=== PATIENT | female | born 1975 | race Hispanic/Latino ===

== ENCOUNTER 2017-12-24 01:11 | Emergency (ER) | payer SELFPAY ==
[2017-12-24 01:31] VITALS: TEMP 98.4
--- NOTE | 2017-12-24 02:19 | ED PDOC ---
Arrival/HPI <Rashi Amador - Last Filed: 12/24/17 04:37> - General Historian: Patient - History of Present Illness Narrative History of Present Illness (Text): 12/24/17 02:13 42 yo F with PMHx of nephrolithiasis, pyelonephritis, UTI, PE, anxiety presenting to ED with acute onset L flank pain x 2 hours. Patient describes pain as cramping, initially constant but now intermittent, localized primarily to the L flank with radiation to the groin, rated 9/10 in severity. She endorses associated nausea but no vomiting, dysuria since last night, hematuria last night but not today. Denies fevers/chills, headaches, dizziness, changes in vision, chest pain, palpitations, sob, cough, abdominal pain. PMHx: nephrolithiasis, pyelonephritis, UTI, PE, anxiety PSHx: appendectomy, cholecystectomy, hysterectomy Allergies: CTX, All NSAIDs, PCN Home Medications: as per chart Social Hx: denies tobacco, alcohol, illicit drug use FHx: unknown Time/Duration: 1-3 hours Symptom Onset: Sudden Symptom Course: Unchanged Quality: Cramping Severity Level: 9 Activities at Onset: Light <Michael Montana - Last Filed: 12/24/17 05:34> - General Chief Complaint: GI Problem Time Seen by Provider: 12/24/17 01:18 Past Medical History - Provider Review Nursing Documentation Reviewed: Yes - Pulmonary Hx Pulmonary Embolism: Yes - Psychiatric Hx Anxiety: Yes Hx Depression: Yes Hx Substance Use: No - Surgical History Hx Appendectomy: Yes (2014) Hx Cholecystectomy: Yes (2014) Hx Hysterectomy: Yes (2013) <Michael Montana - Last Filed: 12/24/17 05:34> Family/Social History - Physician Review Nursing Documentation Reviewed: Yes Family/Social History: Unknown Family HX Smoking Status: Never Smoked Hx Alcohol Use: No Hx Substance Use: No <Michael Montana - Last Filed: 12/24/17 05:34> Allergies/Home Meds <Rashi Amador - Last Filed: 12/24/17 04:37> <Michael Montana - Last Filed: 12/24/17 05:34> Allergies/Adverse Reactions: Allergies ceftriaxone [From Rocephin] Allergy (Verified 12/24/17 01:27) ANAPHYLAXIS NSAIDS (Non-Steroidal Anti-Inflamma Allergy (Verified 12/24/17 01:27) RASH Penicillins Allergy (Verified 12/24/17 01:27) ANAPHYLAXIS Sulfa (Sulfonamide Antibiotics) Allergy (Verified 12/24/17 01:27) ANAPHYLAXIS Home Medications: Home Meds Medication Instructions Recorded Confirmed Venlafaxine [Effexor 50 MG] 150 mg PO DAILY 12/24/17 12/24/17 Review of Systems - Review of Systems Constitutional: Normal. absent: Fevers Eyes: Normal ENT: Normal Respiratory: Normal. absent: SOB, Cough, Wheezing Cardiovascular: Normal. absent: Chest Pain, Palpitations, Edema, Calf Pain Gastrointestinal: Normal, Constipation, Nausea. absent: Abdominal Pain, Diarrhea, Vomiting, Food Intolerance Genitourinary Female: Dysuria, Hematuria. absent: Frequency Musculoskeletal: Back Pain (L flank pain) Skin: Normal Neurological: Normal. absent: Headache, Dizziness Endocrine: Normal Hemo/Lymphatic: Normal Psychiatric: Anxiety <Michael Montana - Last Filed: 12/24/17 05:34> Physical Exam Vital Signs Temp Pulse Resp BP Pulse Ox 12/24/17 01:28 98.4 F 84 18 146/95 H 96 <Rashi Amador - Last Filed: 12/24/17 04:37> Vital Signs Temp Pulse Resp BP Pulse Ox 12/24/17 01:28 98.4 F 84 18 146/95 H 96 Temperature: Afebrile Blood Pressure: Hypertensive Pulse: Regular Respiratory Rate: Normal Appearance: Positive for: Well-Appearing, Non-Toxic Pain Distress: Moderate Mental Status: Positive for: Alert and Oriented X 3 - Systems Exam Head: Present: Atraumatic, Normocephalic Pupils: Present: PERRL Extroacular Muscles: Present: EOMI Conjunctiva: Present: Normal Neck: Present: Normal Range of Motion Respiratory/Chest: Present: Clear to Auscultation, Good Air Exchange. No: Respiratory Distress, Accessory Muscle Use, Wheezes, Rales, Rhonchi Cardiovascular: Present: Regular Rate and Rhythm, Normal S1, S2 Abdomen: Present: Normal Bowel Sounds. No: Tenderness, Distention, Peritoneal Signs, Rebound, Guarding, Mass/Organomegaly Back: Present: Normal Inspection, CVA Tenderness (+ L side) Upper Extremity: Present: Normal Inspection, Normal ROM, NORMAL PULSES, Capillary Refill < 2s. No: Cyanosis, Edema, Tenderness, Swelling, Erythema Lower Extremity: Present: Normal Inspection, NORMAL PULSES, Normal ROM, Capillary Refill < 2 s. No: Edema, CALF TENDERNESS, Cyanosis, Tenderness, Swelling Neurological: Present: GCS=15, Speech Normal Skin: Present: Warm, Dry, Normal Color. No: Rashes Psychiatric: Present: Alert, Oriented x 3, Normal Insight, Normal Concentration <Michael Montana - Last Filed: 12/24/17 05:34> Medical Decision Making - Lab Interpretations Lab Results: 12/24/17 02:02 12/24/17 02:02 Lab Results 12/24/17 02:05: Urine Color Yellow, Urine Appearance Clear, Urine pH 6.0, Ur Specific [place] >= 1.030, Urine Protein Trace H, Urine Glucose (UA) Negative, Urine Ketones 15 H, Urine Blood Negative, Urine Nitrate Negative, Urine Bilirubin Negative, Urine Urobilinogen 0.2, Ur Leukocyte Esterase Trace H, Urine RBC 0 - 2, Urine WBC 1 - 3, Ur Epithelial Cells 1 - 3, Calcium Oxalate Crystal Occ, Urine Bacteria Small 12/24/17 02:02: Sodium 141, Potassium 3.7, Chloride 103, Carbon Dioxide 28, Anion Gap 14, BUN 10, Creatinine 0.9, Est GFR ( Amer) > 60, Est GFR (Non- Af Amer) > 60, Random Glucose 101, Calcium 9.8, Phosphorus 5.2 H, Magnesium 2.1, Total Bilirubin 0.1 L, AST 26, ALT 24, Alkaline Phosphatase 70, Total Protein 7.5, Albumin 4.3, Globulin 3.2, Albumin/Globulin Ratio 1.3 12/24/17 02:02: WBC 4.9, RBC 4.17, Hgb 11.7 L, Hct 36.8, MCV 88.2, MCH 28.1, MCHC 31.8, RDW 14.1, Plt Count 318, MPV 9.6, Gran % 62.8, Lymph % (Auto) 25.8, [place] % (Auto) 9.8 H, Eos % (Auto) 1.4 L, Baso % (Auto) 0.2, Gran # 3.07, Lymph # (Auto) 1.3, [place] # (Auto) 0.5, Eos # (Auto) 0.1, Baso # (Auto) 0.01 - RAD Interpretation Radiology Orders: 12/24/17 01:49 ABD & PELVIS W/O PO OR IV CONT [CT] Stat - Medication Orders Current Medication Orders: Discontinued Medications Acetaminophen (Tylenol 325mg Tab) 975 mg PO STAT STA Stop: 12/24/17 01:50 Last Admin: 12/24/17 02:12 Dose: 975 mg Morphine Sulfate (Morphine) 4 mg IVP STAT STA Stop: 12/24/17 02:40 Last Admin: 12/24/17 02:47 Dose: 4 mg MAR Pain Assessment Document 12/24/17 02:47 CNR (Rec: 12/24/17 02:48 CNR [id number]) Pain Reassessment Is this a pain reassessment? No IVP Administration Document 12/24/17 02:47 CNR (Rec: 12/24/17 02:48 CNR [id number]) Charges for Administration # of IVP Administrations 1 Ondansetron HCl (Zofran Inj) 4 mg IVP STAT STA Stop: 12/24/17 01:50 Last Admin: 12/24/17 02:12 Dose: 4 mg IVP Administration Document 12/24/17 02:12 CNR (Rec: 12/24/17 02:12 CNR [id number]) Charges for Administration # of IVP Administrations 1 Tamsulosin HCl (Flomax) 0.4 mg PO STAT STA Stop: 12/24/17 01:50 Last Admin: 12/24/17 02:12 Dose: 0.4 mg <Rashi Amador - Last Filed: 12/24/17 04:37> ED Course and Treatment: 12/24/17 02:23 Impression: 42 yo F with pmhx of nephrolithiasis, pyelonephritis, UTI, PE, anxiety presenting to ED with acute onset L flank pain x 2 hours Plan: --CBC, CMP --UA --zofran --tylenol --ct abdomen/pelvis --reassess and disposition 12/24/17 02:43 Patient's pain did not subside with tylenol, requesting morphine as it helped last time she was seen in ED Given extensive medicine allergy, to give morphine x1 12/24/17 04:41 Patient endorses moderate relief of pain s/p morphine Updated pt on CT findings of nonobstructing L renal stones pt is afebrile, no leukocytosis, in no acute distress Medically stable for discharge with outpatient follow-up Instructed to return to ED if symptoms worsen. - Lab Interpretations I have reviewed the lab results: Yes - RAD Interpretation Narrative RAD Interpretations (Text): 12/24/17 03:43 Moderate L renal atrophy Nonobstructing L renal stones Prior cholecystectomy Radiology Orders: 12/24/17 01:49 ABD & PELVIS W/O PO OR IV CONT [CT] Stat Yard Engineer: Radiologist - Medication Orders Current Medication Orders: Discontinued Medications Acetaminophen (Tylenol 325mg Tab) 975 mg PO STAT STA Stop: 12/24/17 01:50 Last Admin: 12/24/17 02:12 Dose: 975 mg Ondansetron HCl (Zofran Inj) 4 mg IVP STAT STA Stop: 12/24/17 01:50 Last Admin: 12/24/17 02:12 Dose: 4 mg IVP Administration Document 12/24/17 02:12 CNR (Rec: 12/24/17 02:12 CNR [id number]) Charges for Administration # of IVP Administrations 1 Tamsulosin HCl (Flomax) 0.4 mg PO STAT STA Stop: 12/24/17 01:50 Last Admin: 12/24/17 02:12 Dose: 0.4 mg <Michael Montana - Last Filed: 12/24/17 05:34> Disposition/Present on Arrival <Rashi Amador - Last Filed: 12/24/17 04:37> - Present on Arrival Any Indicators Present on Arrival: Yes History of DVT/PE: Yes History of Uncontrolled Diabetes: No Urinary Catheter: No History of Decub. Ulcer: No History Surgical Site Infection Following: None - Disposition Have Diagnosis and Disposition been Completed?: Yes Disposition Time: 04:43 Patient Plan: Discharge <Michael Montana - Last Filed: 12/24/17 05:34> - Disposition Diagnosis: Kidney stone on left side Disposition: HOME/ ROUTINE Condition: STABLE Discharge Instructions (ExitCare): Kidney Stones (DC) Additional Instructions: MAYDA ESCOBAR, thank you for letting us take care of you today. Your provider was Rashi Amador MD and you were treated for flank pain. The emergency medical care you received today was directed at your acute symptoms. If you were prescribed any medication, please fill it and take as directed. It may take several days for your symptoms to resolve. Return to the Emergency Department if your symptoms worsen, do not improve, or if you have any other problems. Please contact your doctor or call one of the physicians/clinics you have been referred to that are listed on the Patient Visit Information form that is included in your discharge packet. Bring any paperwork you were given at discharge with you along with any medications you are taking to your follow up visit. Our treatment cannot replace ongoing medical care by a primary care pro vider outside of the emergency department. Thank you for allowing the [facility] team to be part of your care today. Referrals: PCP,NO [Non-Staff] - Follow up with primary Forms: [employer] ([place])
[2017-12-24 02:22] LABS: BASO # 0.01 K/mm3 (0.0-2.0); BASO % 0.2 % (0.0-3.0); EOS # 0.1 (0.0-0.7); EOS % 1.4 % (1.5-5.0); GRAN # 3.07 (1.4-6.5); GRAN % 62.8 % (50.0-68.0); HEMOGLOBIN 11.7 g/dL (12.0-16.0); LYMPH # 1.3 (1.2-3.4); LYMPH % 25.8 % (22.0-35.0); MEAN CELL VOLUME 88.2 fl (80.0-105.0); MEAN CORPUSCULAR HEMOGLOBIN 28.1 pg (25.0-35.0); MEAN CORPUSCULAR HGB CONC 31.8 g/dl (31.0-37.0); MEAN PLATELET VOLUME 9.6 fl (7.0-11.0); MONO # 0.5 (0.1-0.6); MONO % 9.8 % (1.0-6.0); RBC 4.17 10^6/uL (3.5-6.1); RED CELL DISTRIBUTION WIDTH 14.1 % (11.5-14.5); WHITE BLOOD COUNT 4.9 10^3/ul (4.5-11.0)
[2017-12-24 02:23] LABS: URINE BILIRUBIN NEGATIVE (NEGATIVE); URINE BLOOD NEGATIVE (NEGATIVE); URINE GLUCOSE (UA) NEGATIVE (NEGATIVE); URINE LEUKOCYTE ESTERASE TRACE Leu/uL (NEGATIVE); URINE PROTEIN TRACE mg/dL (<30 mg/dL); URINE UROBILINOGEN 0.2 E.U./dL (<1 E.U./dL)
[2017-12-24 02:25] LABS: URINE APPEARANCE CLEAR (CLEAR); URINE COLOR YELLOW (YELLOW)
[2017-12-24 02:34] LABS: URINE BACTERIA SMALL (NEG); URINE RBC 0 - 2 /hpf (0-2)
[2017-12-24 02:35] LABS: URINE CALCIUM OXALATE CRYSTALS OCC /hpf
[2017-12-24] MEDS ORDERED: Morphine 4 mg/ml ISec IVP STA (02:39)
[2017-12-24 02:51] LABS: ALB/GLOB RATIO 1.3 (1.1-1.8); ALBUMIN 4.3 g/dL (3.0-4.8); ALT/SGPT 24 U/L (7-56); AST/SGOT 26 U/L (14-36); BLOOD UREA NITROGEN 10 mg/dL (7-21); CALCIUM 9.8 mg/dL (8.4-10.5); GFR NON-AFRICAN AMERICAN > 60
[2017-12-24 04:49] VITALS: BP 136/79; PULSE 71; RESP 16; O2SAT 100
--- NOTE | 2017-12-24 10:07 | CT ---
Date of service: 12/24/2017 PROCEDURE: CT Abdomen and Pelvis without intravenous contrast HISTORY: L flank pain COMPARISON: None. TECHNIQUE: Without contrast.. Contrast dose: Radiation dose: Total exam DLP = 1041.44 mGy-cm. This CT exam was performed using one or more of the following dose reduction techniques: Automated exposure control, adjustment of the mA and/or kV according to patient size, and/or use of iterative reconstruction technique. FINDINGS: LOWER THORAX: Unremarkable. LIVER: Unremarkable. No gross lesion or ductal dilatation. Fatty infiltration of the liver GALLBLADDER AND BILE DUCTS: Gallbladder removed PANCREAS: Unremarkable. No gross lesion or ductal dilatation. SPLEEN: Unremarkable. ADRENALS: Unremarkable. No mass. KIDNEYS AND URETERS: Unremarkable. No hydronephrosis. No solid mass. Atrophy and scarring in the left kidney with peripheral nonobstructing stones VASCULATURE: Unremarkable. No aortic aneurysm. BOWEL: Unremarkable. No obstruction. No gross mural thickening. APPENDIX: Appendectomy PERITONEUM: Unremarkable. No free fluid. No free air. LYMPH NODES: Unremarkable. No enlarged lymph nodes. BLADDER: Unremarkable. REPRODUCTIVE: Unremarkable. BONES: No acute fracture. OTHER FINDINGS: The report concurs with the preliminary [facility] report IMPRESSION: No acute findings
== END 2017-12-24 04:55 | disposition home or self-care (01) ==
LOC: ED 01:11
DX: N20.0 Calculus of kidney (principal)
CPT/HCPCS: 74176; 80053; 81001; 83735; 84100; 85025; 87086; 96374; 96375; 99284; J2270; J2405

== ENCOUNTER 2018-06-04 01:21 | Emergency (ER) | payer SELFPAY ==
[2018-06-04 01:44] VITALS: O2SAT 98; BMI 32.1
[2018-06-04] MEDS ORDERED: Sodium Chloride 0.9% 1,000 ML IV STA (02:03)
[2018-06-04] MEDS ORDERED: Morphine 2 mg/ml ISec IVP STA ×2 (02:03→04:19)
--- NOTE | 2018-06-04 02:14 | ED PDOC ---
Arrival/HPI - General Chief Complaint: Back Pain Time Seen by Provider: 06/04/18 01:39 Historian: Patient - History of Present Illness Narrative History of Present Illness (Text): 06/04/18 02:04 37 year old female, whose past medical history includes nephrolithiasis, pyelonephritis, UTI, PE, anxiety, kidney stones, presents to the emergency department complaining of onset of left flank discomfort associated with noted blood in urine. Patient states symptoms consists with renal colic which she has had in the past. Patient denies any fever, chills, chest pain, shortness of breath, nausea, vomiting, diarrhea, neck pain, headache, dizziness, or any other complaints. Symptom Onset: Gradual Symptom Course: Unchanged Activities at Onset: Light Context: Home Past Medical History - Provider Review Nursing Documentation Reviewed: Yes - Infectious Disease Hx of Infectious Diseases: None - Cardiac Hx Cardiac Disorders: No - Pulmonary Hx Respiratory Disorders: Yes Hx Pulmonary Embolism: Yes - Neurological Hx Neurological Disorder: No - HEENT Hx HEENT Disorder: No - Renal Hx Renal Disorder: No - Endocrine/Metabolic Hx Endocrine Disorders: No - Hematological/Oncological Hx Blood Disorders: No - Integumentary Hx Dermatological Disorder: No - Musculoskeletal/Rheumatological Hx Musculoskeletal Disorders: No - Gastrointestinal Hx Gastrointestinal Disorders: No - Genitourinary/Gynecological Hx Genitourinary Disorders: No - Psychiatric Hx Psychophysiologic Disorder: Yes Hx Anxiety: Yes Hx Depression: Yes Hx Substance Use: No - Surgical History Hx Appendectomy: Yes (2014) Hx Cholecystectomy: Yes (2014) Hx Hysterectomy: Yes (2013) - Anesthesia Hx Anesthesia: No Family/Social History - Physician Review Nursing Documentation Reviewed: Yes Family/Social History: No Known Family HX Smoking Status: Never Smoked Hx Alcohol Use: No Hx Substance Use: No Allergies/Home Meds Allergies/Adverse Reactions: Allergies ceftriaxone [From Rocephin] Allergy (Verified 06/04/18 01:48) ANAPHYLAXIS NSAIDS (Non-Steroidal Anti-Inflamma Allergy (Verified 06/04/18 01:48) RASH Penicillins Allergy (Verified 06/04/18 01:48) ANAPHYLAXIS Sulfa (Sulfonamide Antibiotics) Allergy (Verified 06/04/18 01:48) ANAPHYLAXIS Home Medications: Home Meds Medication Instructions Recorded Confirmed Venlafaxine [Effexor 50 MG] 150 mg PO DAILY 12/24/17 06/04/18 Review of Systems - Physician Review All systems were reviewed & negative as marked: Yes - Review of Systems Constitutional: absent: Fevers, Other (chills) Respiratory: absent: SOB Cardiovascular: absent: Chest Pain Gastrointestinal: Abdominal Pain (left flank pain). absent: Diarrhea, Nausea, Vomiting Genitourinary Female: Hematuria Musculoskeletal: absent: Neck Pain Neurological: absent: Headache, Dizziness Physical Exam Vital Signs Reviewed: Yes Vital Signs Temp Pulse Resp BP Pulse Ox 06/04/18 01:43 97.9 F 96 H 18 111/39 L 98 Temperature: Afebrile Blood Pressure: Hypotensive Pulse: Regular Respiratory Rate: Normal Appearance: Positive for: Well-Appearing, Non-Toxic, Comfortable Pain Distress: None Mental Status: Positive for: Alert and Oriented X 3 - Systems Exam Head: Present: Atraumatic, Normocephalic Pupils: Present: PERRL Extroacular Muscles: Present: EOMI Conjunctiva: Present: Normal Mouth: Present: Moist Mucous Membranes Neck: Present: Normal Range of Motion Respiratory/Chest: Present: Clear to Auscultation, Good Air Exchange. No: Respiratory Distress, Accessory Muscle Use Cardiovascular: Present: Regular Rate and Rhythm, Normal S1, S2. No: Murmurs Abdomen: No: Tenderness, Distention, Peritoneal Signs Back: Present: CVA Tenderness (left CVA tenderness) Upper Extremity: Present: Normal Inspection. No: Cyanosis, Edema Lower Extremity: Present: Normal Inspection. No: Edema Neurological: Present: GCS=15, CN II-XII Intact, Speech Normal Skin: Present: Warm, Dry, Normal Color. No: Rashes Psychiatric: Present: Alert, Oriented x 3, Normal Insight, Normal Concentration Medical Decision Making ED Course and Treatment: 06/04/18 02:03 Impression: 43 year old male presents complaining of onset of left flank discomfort associated with hematuria. Past medical history includes kidney stones. Plan: -- CT Abd and pelvis w/o contrast -- Labs -- Morphine. IV Fluids, Zofran Inj -- Urinalysis -- Reassess and disposition Prior Visits: Notes and results from previous visits were reviewed. Progress Notes: CT SCAN OF THE ABDOMEN AND PELVIS WITHOUT ORAL OR IV CONTRAST. Electronically signed on Jun 04, 2018 4:17:55 AM EDT by: Lisbeth Witt M.D., IMPRESSION: Moderate left renal atrophy. Nonobstructing left renal stones. Prior cholecystectomy. 06/04/18 05:13 Patient remains asymptomatic. have discussed the results and plan with the patient, who expresses understanding. Patient in agreement with plan to be discharged home. Patient is stable for discharge. Patient will follow up with urologist this week. - Lab Interpretations I have reviewed the lab results: Yes - RAD Interpretation Radiology Orders: 06/04/18 02:03 ABD & PELVIS W/O PO OR IV CONT [CT] Stat Business Services Tech: Radiologist - EKG Interpretation Interpreted by ED Physician: Yes Type: 12 lead EKG - Medication Orders Current Medication Orders: Sodium Chloride (Sodium Chloride 0.9%) 1,000 mls @ 999 mls/hr IV .Q1H1M STA Stop: 06/04/18 03:03 Discontinued Medications Morphine Sulfate (Morphine) 2 mg IVP STAT STA Stop: 06/04/18 02:04 Ondansetron HCl (Zofran Inj) 4 mg IVP ONCE ONE Stop: 06/04/18 02:04 - Scribe Statement The provider has reviewed the documentation as recorded by the Emily Norman Provider Scribe Attestation: All medical record entries made by the Emily were at my direction and personally dictated by me. I have reviewed the chart and agree that the record accurately reflects my personal performance of the history, physical exam, medical decision making, and the department course for this patient. I have also personally directed, reviewed, and agree with the discharge instructions and disposition. Disposition/Present on Arrival - Present on Arrival Any Indicators Present on Arrival: No History of DVT/PE: Yes History of Uncontrolled Diabetes: No Urinary Catheter: No History of Decub. Ulcer: No History Surgical Site Infection Following: None - Disposition Have Diagnosis and Disposition been Completed?: Yes Diagnosis: Renal colic Disposition: HOME/ ROUTINE Disposition Time: 05:10 Patient Plan: Discharge Patient Problems: Current Active Problems Problem Status Onset Renal colic Acute Condition: GOOD Discharge Instructions (ExitCare): Renal Colic (DC) Additional Instructions: Drink plenty of liquids/take meds as prescribed/follow up with your urologist this week Prescriptions: oxyCODONE/Acetaminophen [Percocet 5/325 mg Tab] 1 ea PO Q6 PRN #10 tab PRN Reason: Pain, Moderate (4-7) Forms: [facility] (Japanese), WORK NOTE
[2018-06-04 03:08] LABS: HEMOGLOBIN 10.7 g/dL (12.0-16.0); MEAN CELL VOLUME 87.8 fl (80.0-105.0); MEAN CORPUSCULAR HEMOGLOBIN 27.3 pg (25.0-35.0); MEAN CORPUSCULAR HGB CONC 31.1 g/dl (31.0-37.0); MEAN PLATELET VOLUME 9.9 fl (7.0-11.0); RBC 3.92 10^6/uL (3.5-6.1); RED CELL DISTRIBUTION WIDTH 15.2 % (11.5-14.5)
[2018-06-04 03:21] LABS: PH,URINE 5.5 (4.7-8.0); URINE BILIRUBIN NEGATIVE (NEGATIVE); URINE BLOOD LARGE (NEGATIVE); URINE GLUCOSE (UA) NEGATIVE (NEGATIVE); URINE LEUKOCYTE ESTERASE NEGATIVE Leu/uL (NEGATIVE); URINE PROTEIN 30 mg/dL (<30 mg/dL); URINE UROBILINOGEN 0.2 E.U./dL (<1 E.U./dL)
[2018-06-04 03:22] LABS: URINE APPEARANCE SL CLOUDY (CLEAR); URINE COLOR LIGHT RED (YELLOW)
[2018-06-04 03:23] LABS: URINE EPITHELIAL CELLS 0 - 2 /hpf (0-5); URINE RBC TNTC /hpf (0-2); URINE WBC 0 - 2 /hpf (0-6)
[2018-06-04 03:57] LABS: ALB/GLOB RATIO 1.3 (1.1-1.8); ALBUMIN 4.1 g/dL (3.0-4.8); ALT/SGPT 24 U/L (7-56); AST/SGOT 30 U/L (14-36); BLOOD UREA NITROGEN 9 mg/dL (7-21); CALCIUM 9.3 mg/dL (8.4-10.5); GFR NON-AFRICAN AMERICAN > 60
[2018-06-04 05:44] VITALS: BP 112/68; PULSE 81; RESP 20; TEMP 98.1
--- NOTE | 2018-06-04 08:48 | CT ---
PROCEDURE: CT Abdomen and Pelvis without Oral or IV contrast. HISTORY: left flank pain/hx. kidney stones COMPARISON: CT abdomen and pelvis without contrast during 12/24/17 TECHNIQUE: Contiguous axial images of the abdomen and pelvis. No oral or IV contrast administered. Coronal and Sagittal reformats generated and reviewed. Radiation dose: Total exam DLP = 1175.77 mGy-cm. This CT exam was performed using one or more of the following dose reduction techniques: Automated exposure control, adjustment of the mA and/or kV according to patient size, and/or use of iterative reconstruction technique. FINDINGS: There is limited evaluation of the solid organs without the administration of IV contrast. LOWER THORAX: Bibasilar atelectasis. No pleural effusion or pneumothorax. LIVER: Unremarkable. GALLBLADDER AND BILE DUCTS: Cholecystectomy clips. PANCREAS: Unremarkable. SPLEEN: Unremarkable. ADRENALS: Unremarkable. KIDNEYS AND URETERS: Moderate atrophy of the left kidney. Multifocal scarring of the left kidney. 3 mm hyperdensity at the left lower pole kidney. Nonobstructing left renal calculi. Right extrarenal pelvis. BLADDER: The urinary bladder appears unremarkable. REPRODUCTIVE: Uterus is absent, presumably due to hysterectomy. APPENDIX: The appendix is identified presumably due to appendectomy. Suture material at the cecum. No secondary signs of acute appendicitis. BOWEL: The stomach is nondistended. Lack of oral contrast limits evaluation for bowel pathology. The bowel loops appear within normal limits of caliber without evidence of intestinal obstruction. PERITONEUM: No significant free fluid. No definite free air. LYMPH NODES: No bulky lymphadenopathy identified. VASCULATURE: No significant atherosclerotic calcifications identified. No aortic aneurysm. BONES: Degenerative changes of the spine. Scoliosis. OTHER FINDINGS: None. IMPRESSION: Moderate atrophy of the left kidney. Multifocal scarring of the left kidney. 3 mm hyperdensity at the left lower pole kidney. Nonobstructing left renal calculi. Right extrarenal pelvis. Bibasilar atelectasis. Cholecystectomy. Appendectomy. Preliminary impression was provided by [facility].
== END 2018-06-04 05:42 | disposition home or self-care (01) ==
LOC: ED 01:21
DX: N23 Unspecified renal colic (principal)
CPT/HCPCS: 74176; 80053; 81001; 85027; 96374; 96375; 96376; 99282; J2270; J2405; J7030